=== PATIENT | female | born 1945 | race Caucasian/White ===

== ENCOUNTER 2021-06-03 11:35 | Inpatient (IN) ==
[2021-06-03] MEDS ORDERED: SODIUM CHLORIDE 0.9% 1,000 ML IV STA (12:13)
[2021-06-03] MEDS ORDERED: PANTOPRAZOLE 40 MG VIAL IV STA (12:13)
[2021-06-03 12:34] LABS: Basophils % 0.2 % (0.0-0.8); Eosinophils % 0.1 % (0.00-10.9); Hematocrit 48.6 VOL% (35.7-47.0); Hemoglobin 16.6 GM/DL (12.0-16.0); Immature Granulocytes % 0.8 %; Immature Granulocytes Absolute 0.12 #; Lymphocytes # 0.9 10*3/uL (1.4-4.0); Lymphocytes % 5.8 % (21.3-54.2); Mean Corpuscular HGB Conc 34.2 GM/DL (32-36); Mean Corpuscular Volume 86.9 FL (87-102); Mean Platelet Volume 11.2 FL (9.6-12.0); Monocytes % 3.8 % (1.7-12.7); Neutrophils % 89.3 % (38.7-73.9); Platelet Count 258 T/CUMM (130-400); Red Blood Count 5.59 MC/CUMM (3.8-5.5); Red Cell Distribution Width 14.2 % (9.3-17.3); White Blood Count 15.6 T/CUMM (4-12)
[2021-06-03 13:04] LABS: PT Patient Result 10.8 SECS (10.5-12.0)
[2021-06-03 13:21] LABS: Albumin 3.3 G/DL (3.4-5.0); Bilirubin,Total 0.7 MG/DL (0.20-1.00); Calcium 9.3 MG/DL (8.5-10.1); Osmolality,Calculated 283.7 MOS/KG (273-304); Potassium 3.9 MMOL/L (3.5-5.1); Total Protein 6.2 G/DL (6.4-8.2)
[2021-06-03] MEDS ORDERED: DEXTROSE 50% 25 GM/50 ML VIAL IV PRN (15:06)
[2021-06-03] MEDS ORDERED: GLUCAGON 1 MG VIAL IM PRN (15:06)
[2021-06-03] MEDS: DEXTROSE 5% NACL 0.9% 1,000 ML IV SCH (17:07)
[2021-06-03] MEDS: ONDANSETRON 4 MG/2 ML VIAL IV PRN (21:08)
[2021-06-03] MEDS: PANTOPRAZOLE 40 MG VIAL IV SCH (22:35)
[2021-06-04] MEDS: DEXTROSE 5% NACL 0.9% 1,000 ML IV SCH ×2 (01:08→09:17)
[2021-06-04 05:13] LABS: Basophils % 0.3 % (0.0-0.8); Eosinophils # 0.1 10*3/uL (0.0-0.87); Eosinophils % 0.5 % (0.00-10.9); Hematocrit 38.1 VOL% (35.7-47.0); Immature Granulocytes % 0.4 %; Immature Granulocytes Absolute 0.05 #; Lymphocytes # 1.3 10*3/uL (1.4-4.0); Lymphocytes % 11.4 % (21.3-54.2); Mean Corpuscular Volume 89.6 FL (87-102); Mean Platelet Volume 10.7 FL (9.6-12.0); Monocytes % 8.5 % (1.7-12.7); Neutrophils % 78.9 % (38.7-73.9); Red Cell Distribution Width 14.5 % (9.3-17.3); White Blood Count 11.4 T/CUMM (4-12)
[2021-06-04 05:38] LABS: Hemoglobin 12.2 GM/DL (12.0-16.0); Red Blood Count 4.25 MC/CUMM (3.8-5.5)
[2021-06-04 05:39] LABS: Platelet Count 164 T/CUMM (130-400)
[2021-06-04 05:42] LABS: Eosinophils 1 % (0-10); Lymphocytes 6 % (20-55); Platelet Estimate Normal; Segmented Neutrophils 91 % (50-85); Total Cells Counted 100
[2021-06-04 05:46] LABS: Calcium 7.9 MG/DL (8.5-10.1); Osmolality,Calculated 281.5 MOS/KG (273-304); Potassium 3.5 MMOL/L (3.5-5.1)
[2021-06-04] MEDS: PANTOPRAZOLE 40 MG VIAL IV SCH ×2 (09:17→21:28)
[2021-06-04 15:41] LABS: Hematocrit 36.8 VOL% (35.7-47.0); Hemoglobin 11.8 GM/DL (12.0-16.0)
[2021-06-04 22:34] LABS: Hematocrit 34.8 VOL% (35.7-47.0); Hemoglobin 11.2 GM/DL (12.0-16.0)
[2021-06-05] MEDS: DEXTROSE 5% NACL 0.9% 1,000 ML IV SCH ×5 (01:16→20:24)
[2021-06-05 07:10] LABS: Basophils % 0.2 % (0.0-0.8); Eosinophils # 0.3 10*3/uL (0.0-0.87); Hematocrit 33.7 VOL% (35.7-47.0); Hemoglobin 11.2 GM/DL (12.0-16.0); Immature Granulocytes % 0.4 %; Immature Granulocytes Absolute 0.04 #; Lymphocytes # 1.7 10*3/uL (1.4-4.0); Lymphocytes % 17.1 % (21.3-54.2); Mean Corpuscular HGB Conc 33.2 GM/DL (32-36); Mean Corpuscular Volume 88.9 FL (87-102); Mean Platelet Volume 10.7 FL (9.6-12.0); Monocytes % 6.9 % (1.7-12.7); Neutrophils % 72.4 % (38.7-73.9); Platelet Count 150 T/CUMM (130-400); Red Blood Count 3.79 MC/CUMM (3.8-5.5); Red Cell Distribution Width 14.6 % (9.3-17.3); White Blood Count 9.7 T/CUMM (4-12)
[2021-06-05 07:33] LABS: Calcium 7.8 MG/DL (8.5-10.1); Osmolality,Calculated 283.8 MOS/KG (273-304); Potassium 3.4 MMOL/L (3.5-5.1)
[2021-06-05] MEDS ORDERED: POTASSIUM CHLORIDE 20 MEQ TABLET PO ONE (08:04)
[2021-06-05] MEDS: PANTOPRAZOLE 40 MG VIAL IV SCH ×2 (08:15→20:18)
[2021-06-05] MEDS: ONDANSETRON 4 MG/2 ML VIAL IV PRN (11:39)
[2021-06-05 14:41] LABS: Hematocrit 35.5 VOL% (35.7-47.0); Hemoglobin 11.2 GM/DL (12.0-16.0)
[2021-06-05] MEDS ORDERED: POLYETHYLENE GLYCOL POWDER 255 GM BOTTLE PO ONE (18:00)
[2021-06-06] MEDS ORDERED: POLYETHYLENE GLYCOL POWDER 255 GM BOTTLE PO ONE (05:00)
[2021-06-06] MEDS: DEXTROSE 5% NACL 0.9% 1,000 ML IV SCH (05:32)
[2021-06-06] MEDS ORDERED: MAGNESIUM CITRATE 300 ML BOTTLE PO ONE (06:00)
[2021-06-06 06:12] LABS: Basophils % 0.3 % (0.0-0.8); Eosinophils # 0.4 10*3/uL (0.0-0.87); Hematocrit 32.9 VOL% (35.7-47.0); Hemoglobin 10.7 GM/DL (12.0-16.0); Immature Granulocytes % 0.6 %; Immature Granulocytes Absolute 0.05 #; Lymphocytes # 1.8 10*3/uL (1.4-4.0); Lymphocytes % 21.1 % (21.3-54.2); Mean Corpuscular HGB Conc 32.5 GM/DL (32-36); Mean Corpuscular Volume 90.4 FL (87-102); Mean Platelet Volume 10.9 FL (9.6-12.0); Monocytes % 7.9 % (1.7-12.7); Neutrophils % 66.1 % (38.7-73.9); Platelet Count 148 T/CUMM (130-400); Red Blood Count 3.64 MC/CUMM (3.8-5.5); Red Cell Distribution Width 14.2 % (9.3-17.3); White Blood Count 8.7 T/CUMM (4-12)
[2021-06-06 06:19] LABS: PT Patient Result 10.9 SECS (10.5-12.0)
[2021-06-06 06:45] LABS: Calcium 8.1 MG/DL (8.5-10.1); Osmolality,Calculated 286.6 MOS/KG (273-304); Potassium 3.3 MMOL/L (3.5-5.1)
[2021-06-06] MEDS: LOSARTAN 50 MG TABLET PO SCH ×2 (08:54→18:40)
[2021-06-06] MEDS: hydroCHLOROthiazide 25 MG TABLET PO SCH ×2 (08:55→18:40)
[2021-06-06] MEDS: PANTOPRAZOLE 40 MG VIAL IV SCH ×2 (10:06→20:41)
[2021-06-06] MEDS: ONDANSETRON 4 MG/2 ML VIAL IV PRN (10:07)
[2021-06-06] MEDS: LACTATED RINGERS 1,000 ML IV SCH ×4 (12:40→14:23)
[2021-06-06] MEDS ORDERED: LACTATED RINGERS 1,000 ML IV SCH (12:40)
[2021-06-06] MEDS ORDERED: propofoL 200 MG/20 ML VIAL IV ONE (13:23)
[2021-06-06] MEDS ORDERED: LIDOCAINE 2% 5 ML VIAL ONE (13:23)
[2021-06-06] MEDS: POTASSIUM CHLORIDE INJ 40 MEQ in SODIUM CHLORIDE 0.45% 1,000 ML IV SCH (17:28)
[2021-06-07] MEDS: POTASSIUM CHLORIDE INJ 40 MEQ in SODIUM CHLORIDE 0.45% 1,000 ML IV SCH (00:09)
[2021-06-07 05:17] LABS: Basophils % 0.5 % (0.0-0.8); Eosinophils # 0.3 10*3/uL (0.0-0.87); Hematocrit 31.7 VOL% (35.7-47.0); Hemoglobin 10.5 GM/DL (12.0-16.0); Immature Granulocytes % 0.9 %; Immature Granulocytes Absolute 0.06 #; Lymphocytes # 1.6 10*3/uL (1.4-4.0); Lymphocytes % 25.2 % (21.3-54.2); Mean Corpuscular HGB Conc 33.1 GM/DL (32-36); Mean Corpuscular Volume 88.8 FL (87-102); Mean Platelet Volume 10.9 FL (9.6-12.0); Monocytes % 9.3 % (1.7-12.7); Neutrophils % 60.1 % (38.7-73.9); Platelet Count 162 T/CUMM (130-400); Red Blood Count 3.57 MC/CUMM (3.8-5.5); Red Cell Distribution Width 14.1 % (9.3-17.3); White Blood Count 6.5 T/CUMM (4-12)
[2021-06-07 05:37] LABS: Potassium 3.6 MMOL/L (3.5-5.1)
[2021-06-07] MEDS: LOSARTAN 50 MG TABLET PO SCH (09:36)
[2021-06-07] MEDS: hydroCHLOROthiazide 25 MG TABLET PO SCH (09:36)
[2021-06-07] MEDS: PANTOPRAZOLE 40 MG VIAL IV SCH (09:36)
[2021-06-07] MEDS: LACTATED RINGERS 1,000 ML IV SCH (12:30)
[2021-06-07 13:56] VITALS: BP 150/80
== END 2021-06-07 13:50 | disposition home or self-care (01) | DRG 378 ==
LOC: N.ED 11:35 → SUATTDRO 15:06 → N.EDINP 15:06 → N.4E 16:06
PROVIDERS: ADMIT Internal Medicine; ATTEND Internal Medicine